=== PATIENT | male | born 1935 | race Caucasian/White ===

== ENCOUNTER 2019-04-01 09:34 | Emergency (ER) | payer MEDICARE ==
[~2019-04-01] VITALS: Ht 162.6 cm; Wt 72.6 kg
[2019-04-01 11:31] LABS: Basophils # (auto) 0.1 uL; Eosinophils # (auto) 0 uL; Eosinophils % (auto) 0.2 % (0.0-7.0); Hematocrit 38.2 % (41.0-53.0); Hemoglobin 12.5 g/dL (13.5-17.5); Lymphocytes # (auto) 1.5 uL; Lymphocytes % (auto) 9.9 % (10.0-50.0); Mean Corpuscular Hemoglobin 28.2 pg (28.0-32.0); Mean Corpuscular Hgb Conc. 32.7 g/dL (32.0-36.0); Mean Corpuscular Volume 86.3 fL (80.0-100.0); Monocytes # (auto) 1.7 uL; Monocytes % (auto) 11.1 % (0.0-12.0); Neutrophils % (auto) 77.8 % (37.0-80.0); Platelet Count (auto) 442 10^3/uL (140-450); Red Blood Cells 4.42 10^6/uL (4.5-5.90); Red Cell Distribution Width 15.1 % (11.8-14.3); White Blood Cell 15.4 10^3/uL (4.4-10.8)
[2019-04-01 11:53] LABS: INR 1.15 (0.9-1.15); Partial Thromboplastin Time 34.2 sec (23.64-32.05)
[2019-04-01 12:08] LABS: Albumin 2.7 g/dL (3.4-5.0); Anion Gap 7 (5-15); Aspartate Aminotransferase 20 U/L (15-37); BUN/Creatinine Ratio 17.2; Blood Urea Nitrogen 35 mg/dL (7-18); Calcium 8.4 mg/dL (8.5-10.1); Carbon Dioxide 26 mmol/L (21-32); Chloride 103 mmol/L (98-107); GFR African American 40 mL/min; GFR Non-African American 33 mL/min; Glucose 99 mg/dL (74-106); Potassium 4.2 mmol/L (3.5-5.1); Sodium 136 mmol/L (136-145)
[2019-04-01 12:13] LABS: Alanine Aminotransferase < 6 U/L (16-61); Alkaline Phosphatase 65 U/L (45-117); Bilirubin, Total 0.7 mg/dL (0.2-1.0); Total Protein 7.1 g/dL (6.4-8.2)
[2019-04-01 14:00] VITALS: BP 102/63
== END 2019-04-01 15:36 | disposition home or self-care (01) ==
LOC: EDBD 09:34 → ER 09:51
DX: S76.011A Strain of muscle, fascia and tendon of right hip, initial encounter (principal); S86.911A Strain of unspecified muscle(s) and tendon(s) at lower leg level, right leg, initial encounter; F03.90 Unspecified dementia, unspecified severity, without behavioral disturbance, psychotic disturbance, mood disturbance, and anxiety; W18.39XA Other fall on same level, initial encounter; Y93.89 Activity, other specified; Y99.8 Other external cause status; Y92.89 Other specified places as the place of occurrence of the external cause
CPT/HCPCS: 36415; 70450; 72192; 80053; 84484; 85025; 85610; 85730